=== PATIENT | female | born 1950 | race Caucasian/White ===

== ENCOUNTER 2016-08-26 21:50 | Inpatient (IN) | payer BC ==
--- NOTE | ~2016-08-26 | CT2 ---
[facility] A Service of [facility] & [facility] RADIOLOGY TEXT RESULTS PATIENT: JOSEPH STEWART LOCATION: C2A 229-01 : 52 UNIT #: [id number] AGE: [address]: Keshav Skinner MD SEX: F ORDER DR: [id number] [facility] [address] [place], [place] [address] [id number] I MR#: [id number] Acc #: [id number] NAME: JOSEPH STEWART : 1950 SEX: F STUDY DATE/TIME: 08/26/2016 23:41 UNIT: CEDOF ROOM: 62655 STUDY DESCRIPTION: CT Abd and Pelv W Cont Attending Physician: Rachel Reaves M.D. Ordering Physician: Yung Cuellar D.O. Primary Care Physician: Wilfred Watson M.D. MEDICAL IMAGING REPORT This report is preliminary unless electronic signature is present EXAM CT abdomen and pelvis, 08/26/2016 at 23:41 INDICATION Abdominal cramping with nausea and vomiting that started yesterday. Lower pelvic pain on both sides. Pain is currently 10 out of 10. The patient gives a history of lung and breast cancer. TECHNIQUE Axial images were obtained through the abdomen and pelvis following oral and IV contrast administration. Multiplanar reformats were obtained. Comparison is made with 08/29/2015. This CT exam was performed with one or more of the following radiation dose reduction techniques: automatic exposure control, adjustment of mA and/or kV according to patient size, and iterative reconstruction. FINDINGS ABDOMEN: There is a calcified left lower lobe granuloma. Lung bases are otherwise clear. The gallbladder contains a stone but is otherwise normal. No biliary obstruction is seen. There is a stable right adrenal adenoma measuring about 1.5 cm. Solid organs are otherwise normal. No free fluid or adenopathy. There is a moderate hiatal hernia containing the gastric fundus. This appears larger than on the prior study. The GI tract is otherwise remarkable for scattered colonic diverticula. No bowel obstruction. PELVIS: The appendix is normal. There is diffuse rectosigmoid diverticulosis. Additionally, there is diverticulitis involving midsigmoid colon in the left hemipelvis. There is bowel wall thickening with adjacent fat stranding. No abscess is seen. There are 2 small bubbles of free air adjacent to the sigmoid colon suggesting a STS. [facility] A Service of [facility] & [facility] RADIOLOGY TEXT RESULTS PATIENT: JOSEPH STEWART LOCATION: C2A 229-01 : 54 UNIT #: [id number] AGE: [address]: Keshav Skinner MD SEX: F ORDER DR: perforation. No other gas bubbles are seen. The distal small bowel is normal. The urinary bladder is normal. Solid pelvic organs are normal for patient age. There are no suspicious osseous lesions in the abdomen or pelvis. IMPRESSION 1. Acute sigmoid diverticulitis. No abscess is seen, but there are 2 bubbles of extraluminal air just above the sigmoid colon suggesting a perforation. No other free air is seen. 2. No bowel obstruction. Normal appendix. 3. Moderate size hiatal hernia containing the gastric fundus. This has enlarged since last year's exam. 4. Stable right adrenal adenoma. 5. Uncomplicated cholelithiasis. 6. No evidence of metastatic disease in the abdomen or pelvis. Dictated by... Keshav Mclean Jr., M.D. THIS IS AN ELECTRONICALLY VERIFIED REPORT Keshav Mclean Jr., M.D. at 08/27/2016 6:07 AM LEE/mario TD: 08/27/2016 02:38 JOB #: [id number] MEDICAL IMAGING REPORT COPY
--- NOTE | ~2016-08-26 | CO ---
Unit #: [id number] #: [id number] Patient: JOSEPH POPE [id number] [address] [address] [id number] I MR#: [id number] NAME: JOSEPH POPE ROOM: 229 Age: 66 Sex: F Admission Date: 08/27/2016 : 1950 Attending Physician: Keshav Skinner M.D. Primary Care Physician: Wilfred Watson M.D. Consultation Date: 08/27/2016 CONSULTATION REPORT REASON FOR CONSULTATION Possible metastatic breast cancer. HISTORY OF PRESENT ILLNESS Ms. Flores Pope is 66 years old, who was admitted with acute diverticulitis and given a history of what sound like metastatic breast cancer, a consultation requested. Ms. 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 She is followed on annual basis currently by Dr. Chani Gandhi at the [facility]. She was admitted to the hospital with lower abdominal pain with CT scan showing acute diverticulitis. PAST MEDICAL HISTORY Breast cancer and lung cancer as discussed, history of nasal polyps, and hypertension. ALLERGIES She has no known medication allergies. FAMILY HISTORY Negative for cancer in immediate family. SOCIAL HISTORY Quit smoking when she was diagnosed with lung cancer. Rarely drinks any alcohol. She is , lives with her , who is the primary caregiver. REVIEW OF SYSTEMS 14-point review of systems was taken, but limited to some extent by patient's memory issues. CONSTITUTIONAL: No recent change in appetite and weight except accompanying this admission. EYES: Negative. EARS, NOSE, MOUTH, AND THROAT: Negative. CARDIOVASCULAR: Negative. RESPIRATORY: Chronic shortness of breathing without any recent change. GASTROINTESTINAL: Acute diverticulitis. Unit #: [id number] #: [id number] Patient: JOSEPH POPE GENITOURINARY: Negative. NEUROLOGIC: Short-term memory loss. No headaches. ALLERGIC/LYMPHATIC: Negative. SKIN: Negative. PSYCHIATRIC: Negative. PHYSICAL EXAMINATION GENERAL: She is a pleasant elderly woman, lying in bed, looking older than her stated age. VITAL SIGNS: Temperature is 98, pulse is 96, respiratory rate is 18, blood pressure 93/72. ECOG performance status is 1. HEENT: Pupils are equal and reactive well to light. No pallor or icterus. Mucous membranes are moist. NECK: Without adenopathy, JVD, or thyromegaly. CARDIOVASCULAR: First and second heart sounds are heard and regular without murmurs, gallops, or rubs. LUNGS: Chest expansion is symmetric bilaterally currently with normal breath sounds. ABDOMEN: Soft and nontender. Bowel sounds are present. She is slightly tender in lower quadrants. EXTREMITIES: Warm with good pulses. No edema, cyanosis or clubbing. NEUROLOGIC: She is awake, alert, and oriented x3 without any focal findings. DIAGNOSTIC STUDIES LABORATORY RESULTS: CBC on 08/26/2016, white count of 12.9, hemoglobin 12.3, platelet count is 358,000. Complete metabolic panel shows a potassium of 2.7, BUN 16, creatinine is 0.8. LFTs are normal. IMAGING STUDIES: CT scan of the abdomen and pelvis shows findings of acute sigmoid diverticulitis with microperforation, moderate-size hiatal hernia of gastric fundus, stable right adenoma and cholelithiasis without evidence of metastatic disease. Lactic acid is 2.3. ASSESSMENT AND PLAN Flores Pope is 66 years old with acute diverticulitis with a history of early stage breast cancer and lung cancer, stage III, limited stage small cell who has had prophylactic brain radiation therapy with some memory loss as a consequence. At this point, she is now approximately 6 years from diagnosis without any evidence of recurrent disease on CT scan of the abdomen and pelvis, which I discussed with her and . She is on regular followup with Dr. Chani Gandhi at the [facility] and continue followup after discharge as per schedule. I see no oncologic intervention is necessary at this point. Thank you for allowing me to participate in her care. Dictated by... Rl Roa/jigna TD: 08/28/2016 03:40 JOB #: [id number] CC: Chani Gandhi M.D. Unit #: [id number] #: [id number] Patient: JOSEPH POPE CONSULTATION REPORT X Juanito Garcia MD CONSULTATION REPORT
--- NOTE | ~2016-08-26 | DS ---
Unit #: [id number] #: [id number] Patient: JOSEPH STEWART [id number] [address] [address] [id number] I MR#: [id number] NAME: JOSEPH STEWART ROOM: 229 Age: 66 Sex: F Admission Date: 08/27/2016 : 1950 Discharge Date: 09/02/2016 Attending Physician: Keshav Skinner M.D. Primary Care Physician: Wilfred Watson M.D. DISCHARGE SUMMARY DISCHARGE DIAGNOSIS Diverticulitis. PROCEDURE None. HOSPITAL COURSE The patient is a 66-year-old lady who presented with acute diverticulitis. She was started on antibiotics. Her condition improved, for which she began tolerating a regular diet with much improved pain. She remained afebrile. DISPOSITION The patient will be discharged home. CONDITION UPON DISCHARGE Good condition. DISCHARGE DIET She is to follow a regular diet as tolerated. ACTIVITY Activity levels were discussed. FOLLOW-UP She is to follow up with Dr. Feng in approximately 2 weeks. DISCHARGE MEDICATIONS Her regular home medications and Keflex 500 mg q.6 hours, Flagyl 500 mg q.6 hours. PLAN Plans are for outpatient colonoscopy and likely elective resection. Dictated by... Rl Fofana/khanh TD: 09/03/2016 08:31 JOB #: [id number] Unit #: [id number] #: [id number] Patient: JOSEPH STEWART DISCHARGE SUMMARY X Romel Feng MD X DISCHARGE SUMMARY
--- NOTE | ~2016-08-26 | HP ---
Unit #: [id number] #: [id number] Patient: JOSEHP POPE [id number] [address] [place], [place] [address] [id number] I MR#: [id number] NAME: JOSEPH POPE ROOM: 229 Age: 66 Sex: F Admission Date: 08/27/2016 : 1950 Attending Physician: Keshav Skinner M.D. Primary Care Physician: Wilfred Watson M.D. HISTORY AND PHYSICAL HISTORY OF PRESENT ILLNESS Ms. Pope is a 66-year-old white female who has not had any issues like this in the past, but developed lower abdominal pain, suprapubic left lower quadrant, and was seen in the emergency room. She was felt to have acute diverticulitis with microperforation on CT scan, no abscess formation. PAST MEDICAL HISTORY 1. History of hypertension. 2. Breast cancer that actually went into the lung and the liver, but she was successful with chemotherapy evidently, with five years history. 3. History of nasal polyps, polyps in the throat and a left foot problem. 4. She is a nondiabetic. SOCIAL HISTORY She does drink alcohol. No tobacco. ALLERGIES No known drug allergies. REVIEW OF SYSTEMS Otherwise negative. PHYSICAL EXAMINATION VITALS: Temperature 98, pulse 90, respiratory rate 16, blood pressure 100/60. HEENT: Clear. No jaundice. Pupils equal and reactive to light and accommodation with injected sclerae. NECK: Supple. No masses. No tenderness. CHEST: Clear to auscultation and percussion. HEART: Rhythm is regular. No murmurs. ABDOMEN: Soft, nondistended with 2-3+ left lower quadrant suprapubic tenderness. EXTREMITIES: Full range of motion, 1-2+ peripheral pulses bilaterally. No edema. NEUROLOGIC: Cranial nerves II through XII intact with no gross motor or sensory deficits. ASSESSMENT Acute diverticulitis with microperforation. The patient has also had a history of metastatic breast cancer which must be checked. PLAN Unit #: [id number] #: [id number] Patient: JOSEPH POPE We will go ahead and proceed with antibiotics intravenously. Also, we will give her pain medication as needed. this has been explained to the patient. She understands. Dictated by Jovan Sánchez M.D. RDM/gz TD: 08/27/2016 08:25 JOB #: [id number] HISTORY AND PHYSICAL X Jovan Sánchez MD X HISTORY AND PHYSICAL
--- NOTE | ~2016-08-26 | EKG ---
PATIENT: JOSEPH STEWART UNIT #: [id number] Ventricular Rate: 94 BPM Atrial Rate: 94 BPM P-R Interval: 138 ms QRS Duration: 82 ms Q-T Interval: 386 ms QTC Calculation(Bezet): 482 ms P [place]: 47 degrees Calculated R [place]: 6 degrees Calculated T [place]: 5 degrees Diagnosis Line: Normal sinus rhythm Diagnosis Line: Minimal voltage criteria for LVH, may be normal Diagnosis Line: variant Diagnosis Line: Borderline ECG Diagnosis Line: Diagnosis Line: Confirmed by ASHLEY BARFIELD MD ([id number]) on Diagnosis Line: 08/27/2016 10:56:21 PM INTERPRETING MD: CAL
--- NOTE | ~2016-08-26 | CT2 ---
[facility] A Service of [facility] & [facility] RADIOLOGY TEXT RESULTS PATIENT: JOSEPH STEWART LOCATION: C2A 229-01 : [birth year] UNIT #: [id number] AGE: [address]: Keshav Skinner MD SEX: F ORDER DR: [id number] [facility] [address] [place], [place] [address] [id number] I MR#: [id number] Acc #: [id number] NAME: JOSEPH STEWART : 1950 SEX: F STUDY DATE/TIME: 08/29/2016 10:04 UNIT: C2A ROOM: 229 STUDY DESCRIPTION: CT Abd and Pelv W Cont Attending Physician: Keshav Skinner M.D. Ordering Physician: Raphael Gonzales M.D. Primary Care Physician: Wilfred Watson M.D. MEDICAL IMAGING REPORT This report is preliminary unless electronic signature is present EXAM CT abdomen and pelvis with contrast, 08/29/2016 10:04 hours HISTORY 66-year-old woman with lower abdominal pain, nausea, vomiting and diarrhea since 08/26/2016. COMPARISON CT abdomen and pelvis, 08/26/[address] images were obtained from the lung bases through the pubic symphysis with oral and intravenous contrast. Isovue-370, 100 mL IV. Sagittal and coronal reconstructions were performed. Total exam DLP 573 mGy-cm. This CT exam was performed with one or more of the following radiation dose reduction techniques: automatic exposure control, adjustment of mA and/or kV according to patient size, and iterative reconstruction. FINDINGS The lung bases are clear of acute densities and there are no effusions. There is a moderate hiatal hernia without change. Images through the abdomen demonstrate diffuse low attenuation of the liver consistent with fatty infiltration which is unchanged. The spleen, pancreas and bile ducts are normal. The gallbladder is distended with no stones, sludge or wall thickening seen. The left adrenal gland is normal. There is a right adrenal nodule measuring up to 1.5 cm, unchanged. The kidneys demonstrate no mass, stone or dilatation. There is atherosclerotic change of the abdominal aorta without aneurysm. [facility] A Service of [facility] & [facility] RADIOLOGY TEXT RESULTS PATIENT: JOSEPH STEWART LOCATION: C2A 229-01 : [birth year] UNIT #: [id number] AGE: [address]: Keshav Skinner MD SEX: F ORDER DR: The stomach is contracted and unopacified but appears normal. The small bowel is well opacified and normal in appearance. The appendix is normal. The right colon and transverse colon are normal. There are diverticula of the descending colon. The sigmoid colon remains abnormal with focal wall thickening in an area of multiple diverticula. There is stranding of the adjacent fat and suggested developing loculated fluid collection. There is a collection measuring 3.9 x 2.0 x 2.1 cm inferior to the sigmoid colon abutting the left anterolateral aspect of the rectum concerning for a developing abscess. There is a second ovoid area of low attenuation inferior to the sigmoid colon on the left measuring up to 2.6 cm. This could represent a second collection but could also represent an ovarian cyst. This is not clearly related to the acute process in the sigmoid colon. There is residual stranding around the sigmoid colon with increased presacral edema and presacral fluid which does not appear loculated. The small bubbles of extraluminal air cephalad to the abnormal area of sigmoid colon have significantly diminished with only a tiny bubble remaining on the left. IMPRESSION 1. There is persistent although improved wall thickening at the sigmoid colon and an area of multiple colonic diverticula likely representing diverticulitis. The small extraluminal bubbles of air have significantly decreased in size from 08/26/2016. There is residual wall thickening and stranding surrounding the sigmoid colon with increase in presacral edema posterior to the rectum. There is a fairly well-defined fluid collection inferior to the sigmoid colon abutting the left anterolateral margin of the rectum measuring 3.9 x 2.0 x 2.1 cm worrisome for a developing abscess. Given its location percutaneous drainage would be difficult. 2. There is an ovoid 2.6 cm fluid density area inferior to the sigmoid colon on the left. This could represent a second collection or an ovarian cyst. This does appear to be abutting or arising from the left ovary. 3. Fatty change in the liver with distended gallbladder. No gallstones or gallbladder wall thickening. STAT * RESULT Dictated by... Abimobla Ruby M.D. THIS IS AN ELECTRONICALLY VERIFIED REPORT Abimbola Ruby M.D. at 08/29/2016 12:38 PM ERYN/lesia TD: 08/29/2016 11:15 JOB #: [id number] [facility]. [facility] A Service of [facility] & [facility] RADIOLOGY TEXT RESULTS PATIENT: JOSEPH STEWART LOCATION: A 229-01 : [birth year] UNIT #: [id number] AGE: [address]: Keshav Skinner MD SEX: F ORDER DR: MEDICAL IMAGING REPORT COPY
[2016-08-26 21:38] LABS: BASOPHIL% 0.3 % (0-2.5); EOSINOPHIL# 0.1 X10e3 (0-0.7); EOSINOPHIL% 0.7 % (0.0-7.0); HEMATOCRIT 36.5 % (35.0-45.0); HEMOGLOBIN 12.3 gm/dL (12.0-16.0); LYMPHOCYTE# 0.7 X10e3 (1.0-3.5); LYMPHOCYTE% 5.7 % (17.0-45.0); MEAN CELL VOLUME 90.8 FL (83-96); MEAN CORPUSCULAR HEMOGLOBIN 30.7 PG (28-34); MEAN CORPUSCULAR HGB CONC 33.8 g/dL (30-36); MEAN PLATELET VOLUME 7.5 FL (6.5-11.5); MONOCYTE% 7.3 % (3.0-12.0); NEUTROPHIL# 11.1 X10e3 (1.5-7.1); PLATELET COUNT 358 X10e3 (140-420); RED BLOOD COUNT 4.01 X10e (3.90-5.30); RED CELL DISTRIBUTION WIDTH 13.1 % (11.0-15.5); WHITE BLOOD COUNT 12.9 X10e3 (4.0-10.5)
[2016-08-26 21:39] LABS: DIFF IND NO
[~2016-08-26 21:50] MED LIST: ASPIRINEC PO; AVALIDE 150-12.1 TAB PO; CERTAGEN PO; DIOVAN HCT 160-1 TAB PO; DIOVAN HCT 160/1 TAB PO; FLONASE16 GM; LEXAPRO; LEXAPRO PO; PRAVACHOL PO; PREVACID PO; PROTONIX; [UNRECOGNIZED DRUG - OTHER] PO
[2016-08-26 22:01] LABS: URINE SOURCE CLEAN CATCH
[2016-08-26 22:05] LABS: ALBUMIN SERUM 3.9 g/dL (3.5-5.0); ALKALINE PHOSPHATASE 81 U/L (32-92); ALT (SGPT) 26 U/L (10-40); AST (SGOT) 27 U/L (10-42); BILIRUBIN, DIRECT 0.1 mg/dL (0.0-0.2); BILIRUBIN,INDIRECT 0.3 mg/dL (0.0-0.9); BILIRUBIN,TOTAL 0.4 mg/dL (0.2-2.0); BLOOD UREA NITROGEN 16 mg/dL (9-23); CALCIUM SERUM 9.4 mg/dL (8.4-10.2); CARBON DIOXIDE 27 mmol/L (22-31); CHLORIDE 96 mmol/L (100-111); CREATININE SERUM 0.8 mg/dL (0.6-1.4); GLOM FILT RATE Estimated ABOVE60 mL/min (>60); GLUCOSE FASTING 124 mg/dL (70-110); LIPASE 25 U/L (22-51); PROTEIN TOTAL SERUM 7.2 g/dL (6.0-8.3); SODIUM 135 mmol/L (135-145)
[2016-08-26 22:11] LABS: URINE APPEARANCE CLOUDY; URINE BILIRUBIN NEG (NEG); URINE BLOOD NEG (NEG); URINE COLOR YELLOW; URINE GLUCOSE NEG (NEG); URINE KETONE NEG (NEG); URINE LEUKOCYTE ESTERASE 2+ (NEG); URINE NITRATE POS (NEG); URINE PROTEIN NEG (NEG); URINE UROBILINOGEN 0.2 MG/DL (NEG)
[2016-08-26 22:14] LABS: POTASSIUM 2.7 mmol/L (3.5-5.1)
[2016-08-26 22:15] LABS: POC - CKMB <1.0 ng/mL (0.0-7.9); POC - TROPONIN <0.05 ng/mL (<=0.05)
[2016-08-26 22:16] LABS: CULTURE INDICATED? YES; URBCS1 AUWI 0-2 /[HPF] (0-2); URINE BACTERIA AUWI 4+ (NEGATIVE); URINE SQUAMOUS EPITHELIAL CELL FEW /[HPF]
[2016-08-27 06:22] LABS: BASOPHIL% 0.1 % (0-2.5); HEMATOCRIT 29.5 % (35.0-45.0); LYMPHOCYTE# 0.8 X10e3 (1.0-3.5); LYMPHOCYTE% 5.8 % (17.0-45.0); MEAN CELL VOLUME 91.9 FL (83-96); MEAN CORPUSCULAR HEMOGLOBIN 31.1 PG (28-34); MEAN CORPUSCULAR HGB CONC 33.9 g/dL (30-36); MEAN PLATELET VOLUME 7.6 FL (6.5-11.5); MONOCYTE# 0.7 X10e3 (0-1.0); MONOCYTE% 5.5 % (3.0-12.0); NEUTROPHIL# 11.9 X10e3 (1.5-7.1); NEUTROPHIL% 88.6 % (40-75); PLATELET COUNT 277 X10e3 (140-420); RED BLOOD COUNT 3.21 X10e (3.90-5.30); WHITE BLOOD COUNT 13.5 X10e3 (4.0-10.5)
[2016-08-27 06:42] LABS: DIFF IND NO
[2016-08-27 06:48] LABS: BLOOD UREA NITROGEN 11 mg/dL (9-23); BUN/CREATININE RATIO 15.71; CALCIUM SERUM 8.1 mg/dL (8.4-10.2); CARBON DIOXIDE 26 mmol/L (22-31); CHLORIDE 102 mmol/L (100-111); CREATININE SERUM 0.7 mg/dL (0.6-1.4); GLOM FILT RATE Estimated ABOVE60 mL/min (>60); GLUCOSE FASTING 178 mg/dL (70-110); POTASSIUM 3.4 mmol/L (3.5-5.1); SODIUM 136 mmol/L (135-145)
[2016-08-27] MEDS ORDERED: LOSARTAN-HCTZ1 EAC3 PO (10:20)
[2016-08-27] MEDS ORDERED: VENLAFAXINE H37.5 M1 PO (10:20)
[2016-08-27] MEDS ORDERED: LANSOPRAZOLE30 M2 PO (10:20)
[2016-08-27] MEDS ORDERED: ASPIRIN81 M2 PO (10:21)
[2016-08-27] MEDS ORDERED: PRAVASTATIN SOD40 MG PO (10:21)
[2016-08-27] MEDS ORDERED: MULTI VITAMIN1 EACH PO (10:22)
[2016-08-28 06:13] LABS: HEMATOCRIT 30.6 % (35.0-45.0); HEMOGLOBIN 10.4 gm/dL (12.0-16.0); MEAN CELL VOLUME 91.7 FL (83-96); MEAN CORPUSCULAR HEMOGLOBIN 31.2 PG (28-34); MEAN PLATELET VOLUME 7.6 FL (6.5-11.5); RED BLOOD COUNT 3.34 X10e (3.90-5.30); RED CELL DISTRIBUTION WIDTH 13.3 % (11.0-15.5); WHITE BLOOD COUNT 10.2 X10e3 (4.0-10.5)
[2016-08-29 07:33] LABS: HEMATOCRIT 30.9 % (35.0-45.0); HEMOGLOBIN 10.6 gm/dL (12.0-16.0); MEAN CELL VOLUME 91.5 FL (83-96); MEAN CORPUSCULAR HEMOGLOBIN 31.3 PG (28-34); MEAN CORPUSCULAR HGB CONC 34.2 g/dL (30-36); MEAN PLATELET VOLUME 7.8 FL (6.5-11.5); RED BLOOD COUNT 3.37 X10e (3.90-5.30); WHITE BLOOD COUNT 9.3 X10e3 (4.0-10.5)
[2016-08-30 08:47] LABS: HEMATOCRIT 33.8 % (35.0-45.0); HEMOGLOBIN 11.5 gm/dL (12.0-16.0); MEAN CELL VOLUME 92.2 FL (83-96); MEAN CORPUSCULAR HEMOGLOBIN 31.2 PG (28-34); MEAN CORPUSCULAR HGB CONC 33.9 g/dL (30-36); MEAN PLATELET VOLUME 7.5 FL (6.5-11.5); RED BLOOD COUNT 3.67 X10e (3.90-5.30); RED CELL DISTRIBUTION WIDTH 13.1 % (11.0-15.5); WHITE BLOOD COUNT 7.9 X10e3 (4.0-10.5)
[2016-08-30 09:22] LABS: CALCIUM SERUM 8.8 mg/dL (8.4-10.2); CARBON DIOXIDE 26 mmol/L (22-31); CHLORIDE 103 mmol/L (100-111); CREATININE SERUM 0.8 mg/dL (0.6-1.4); GLOM FILT RATE Estimated ABOVE60 mL/min (>60); GLUCOSE FASTING 97 mg/dL (70-110); POTASSIUM 3.9 mmol/L (3.5-5.1); SODIUM 138 mmol/L (135-145)
[2016-08-30 09:23] LABS: BLOOD UREA NITROGEN <5 mg/dL (9-23); BUN/CREATININE RATIO 6.25
[2016-09-02] MEDS ORDERED: METRONIDAZOLE PO (08:03)
[2016-09-02] MEDS ORDERED: DOCUSATE SODIU100 MG PO (08:03)
[2016-09-02] MEDS ORDERED: KEFLEX500 M1 PO (08:04)
== END 2016-09-02 09:46 | disposition home or self-care (01) | DRG 392 ==
LOC: CED 21:50 → CEDOF 08-27 01:45 → C2A 08-27 03:05
PROVIDERS: Emergency Medicine; Surgery
DX: K57.20 Diverticulitis of large intestine with perforation and abscess without bleeding (principal); N30.90 Cystitis, unspecified without hematuria; I10 Essential (primary) hypertension; Z87.891 Personal history of nicotine dependence; B96.20 Unspecified Escherichia coli [E. coli] as the cause of diseases classified elsewhere; Z85.3 Personal history of malignant neoplasm of breast; Z85.118 Personal history of other malignant neoplasm of bronchus and lung; Z85.05 Personal history of malignant neoplasm of liver
CPT/HCPCS: 36415; 74177; 80048; 80076; 80202; 81003; 82553; 83605; 83690; 84484; 85025; 85027; 87086; 87088; 87186; 93005; 96361; 96365; 96366; 96375; 99285; C9113; J1170; J1650; J1956; J2270; J2405; J2543; J3370; Q9967

== ENCOUNTER → 2016-10-05 | Day surgery (SDC) | payer BC ==
[~2016-10-05] MED LIST changes: +ASPIRIN81 M2 PO; +DOCUSATE SODIU100 MG PO; +KEFLEX500 M1 PO; +LANSOPRAZOLE30 M2 PO; +LOSARTAN-HCTZ1 EAC3 PO; +METRONIDAZOLE PO; +MULTI VITAMIN1 EACH PO; +PRAVASTATIN SOD40 MG PO; +VENLAFAXINE H37.5 M1 PO
--- NOTE | ~2016-10-05 | OR ---
Unit #: [id number] #: [id number] Patient: JOSEPH STEWART [id number] [address] [address] [id number] MR#: [id number] NAME: JOSEPH STEWART ROOM: Date of Procedure: 10/05/2016 Admission Date: 10/05/2016 Surgeon: Romel Feng M.D. : 1950 Attending Physician: Romel Feng M.D. Referring Physician: Romel Feng M.D. Primary Care Physician: Wilfred Watson M.D. OPERATIVE REPORT PREOPERATIVE DIAGNOSIS Left lower quadrant abdominal pain. POSTOPERATIVE DIAGNOSIS 1. Severe sigmoid diverticular disease. 2. Rectal polyp 0.2 cm. PROCEDURE PERFORMED 1. Colonoscopy to cecum. 2. Cold biopsy excision of rectal polyp. ANESTHESIA IV sedation. COMPLICATIONS None. INDICATIONS FOR PROCEDURE The patient is a 66-year-old with left lower quadrant abdominal pain. DESCRIPTION OF PROCEDURE The patient was taken to the operating theater and placed in left lateral decubitus position. IV sedation was initiated. Digital rectal exam was normal. Colonoscope was then passed under direct vision and navigated to the cecum. The patient had excellent prep. I identified severe sigmoid diverticular disease. This was noninflamed. She also had a 0.2 cm polyp in the rectum. This was removed in its entirety with cold biopsy. Hemostasis was adequate. She tolerated the procedure well and was sent to the recovery room in good condition. PLAN We will follow up on biopsy results. We will continue on Colace on a b.i.d. basis. We will consider sigmoid colectomy elective. Dictated by... Rl Fofana/jigna TD: 10/06/2016 03:56 JOB #: [id number] Unit #: [id number] #: [id number] Patient: JOSEPH STEWART OPERATIVE REPORT Page 1 of 1 X Romel Feng MD PROCEDURE OPERATIVE NOTE
== END | disposition home or self-care (01) ==
LOC: COPS 10:24
DX: K62.1 Rectal polyp (principal); K57.30 Diverticulosis of large intestine without perforation or abscess without bleeding; I10 Essential (primary) hypertension; E78.5 Hyperlipidemia, unspecified; G47.00 Insomnia, unspecified; E53.8 Deficiency of other specified B group vitamins; Z85.118 Personal history of other malignant neoplasm of bronchus and lung; Z87.19 Personal history of other diseases of the digestive system; Z87.440 Personal history of urinary (tract) infections; Z79.899 Other long term (current) drug therapy; Z98.51 Tubal ligation status; Z80.0 Family history of malignant neoplasm of digestive organs; Z87.891 Personal history of nicotine dependence
CPT/HCPCS: 88305